=== PATIENT | female | born 1985 | race Caucasian/White ===

== ENCOUNTER 2017-05-19 20:05 | Emergency (ER) | payer OTHER ==
[~2017-05-19] VITALS: Ht 170.1 cm; Wt 113.4 kg
[~2017-05-19 20:05] MED LIST: AMOXICILLIN500 MG PO; ATIVAN1 MG PO; BACTRIM DS 8001 TA1 PO; CIPRO500 MG PO; CIPROFLOXACIN500 MG PO; CONCERTA27 M1 PO; FLEXERIL10 MG PO; FLEXERIL5 MG PO; HYDROCODONE BIT1 T11 PO; MACROBID100 M1 PO; MOTRIN800 MG PO; PREDNICOT20 MG PO; PYRIDIUM100 MG PO; PYRIDIUM200 MG PO; ROBAXIN750 MG PO; ULTRAM50 MG PO; WELLBUTRIN SR200 MG PO; XANAX0.25 MG PO
[2017-05-19] MEDS ORDERED: LEXAPRO20 MG PO ×2 (20:18→20:32)
[2017-05-19] MEDS ORDERED: ATARAX,VISTARIL10 MG PO (20:32)
== END 2017-05-19 20:35 | disposition home or self-care (01) ==
LOC: ED 20:05
DX: Z76.0 Encounter for issue of repeat prescription (principal); Z79.899 Other long term (current) drug therapy